=== PATIENT | female | born 1980 | race Caucasian/White ===

== ENCOUNTER 2021-09-28 08:00 | Outpatient (CLI) | payer BC | END 2021-09-28 23:59 | LOC: LAB 08:00 | PROVIDERS: ATTEND Family Medicine | DX: R09.81 Nasal congestion (principal); Z20.822 Contact with and (suspected) exposure to COVID-19 ==

== ENCOUNTER 2024-03-18 10:54 | Outpatient (CLI) | payer OTHER | END 2024-03-18 23:59 | disposition EMS.NT | LOC: EMS 10:54 | DX: R07.9 Chest pain, unspecified (principal); F41.9 Anxiety disorder, unspecified ==